=== PATIENT | female | born 1990 | race Two or more races ===

== ENCOUNTER 2025-03-11 16:22 | Emergency (ER) | payer OTHER ==
[~2025-03-11] VITALS: Ht 162.6 cm; Wt 72.6 kg
[2025-03-11] MEDS ORDERED: CETIRIZINE HCL 5 MG/5 ML ML PO ONE (17:45)
[2025-03-11] MEDS ORDERED: BUTALB/ACETAMINOPHEN/CAFFEINE 1 TAB TABLET PO ONE ×2 (17:45→18:12)
[2025-03-11] MEDS ORDERED: CETIRIZINE HCL 5MG/5ML BLIST.PACK PO ONE (18:12)
[2025-03-11 18:37] LABS: BASO % 0.3 % (0.1-1.2); EOS # 0.23 (0.04-0.54); EOS % 2.7 % (0.7-7.0); LYMPH # 1.97 (1.18-3.74); LYMPH % 22.8 % (19.3-53.1); MEAN PLATELET VOLUME 10.40 fl (9.4-12.4); MONO # 0.60 (0.24-0.82); MONO % 7.0 % (4.7-12.5); NEUT # 5.78 (1.56-6.13); NEUT % 67.0 % (34.0-71.1); RED CELL DISTRIBUTION WIDTH 12.2 % (11.6-14.4)
[2025-03-11 19:36] LABS: COVID-19 AG NEGATIVE (NEGATIVE)
[2025-03-11] MEDS ORDERED: ZYRTEC10 MG PO (20:25)
[2025-03-11] MEDS ORDERED: BUTALBIT-ACETA1 EACH PO (20:25)
== END 2025-03-11 21:23 | disposition home or self-care (01) ==
LOC: ER 16:23
PROVIDERS: General Practice
DX: J00 Acute nasopharyngitis [common cold] (principal); Z20.822 Contact with and (suspected) exposure to COVID-19